=== PATIENT | female | born 2005 | race Caucasian/White ===

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

== ENCOUNTER → 2025-07-21 | Outpatient (CLI) | payer OTHER | LOC: M WHC 09:14 | PROVIDERS: ATTEND Physician Assistant | DX: N93.9 Abnormal uterine and vaginal bleeding, unspecified (principal) ==